=== PATIENT | male | born 1980 | race Caucasian/White ===

== ENCOUNTER 2024-02-09 19:55 | Emergency (ER) | payer MEDICAID ==
[~2024-02-09] VITALS: Ht 172.7 cm; Wt 97.5 kg
[2024-02-09 21:07] LABS: BASO # 0.1 10*3/uL (0.0-0.1); BASO % 0.5 % (0.0-1.0); EOS # 0.2 10*3/uL (0.0-0.4); EOS % 1.4 % (1.0-4.0); HEMATOCRIT 47.5 % (42.0-52.0); LYMPH # 3.2 10*3/uL (1.3-4.4); LYMPH % 25.7 % (27.0-41.0); MEAN CELL VOLUME 85.9 fl (80.0-94.0); MEAN CORPUSCULAR HGB 28.9 pg (27.0-31.0); MEAN CORPUSCULAR HGB CONC 33.7 g/dl (33.0-37.0); MEAN PLATELET VOLUME 9.9 fl (9.6-12.3); MONO % 7.9 % (3.0-9.0); NEUT # 8.1 10*3/uL (2.3-7.9); NEUT % 64.1 % (47.0-73.0); PLATELET COUNT AUTOMATED 251 10*3/uL (130-400); RED BLOOD COUNT 5.53 10*6/uL (4.50-5.90); RED CELL DISTRI WIDTH 13.5 % (0-14.5); WHITE BLOOD COUNT 12.6 10*3/uL (4.8-10.8)
[2024-02-09 21:27] LABS: BUN 9 mg/dl (9-23); CHLORIDE 103 mmol/L (98-107); POTASSIUM 3.8 mmol/L (3.4-5.1)
[2024-02-09] MEDS ORDERED: VIBRAMYCIN100 MG PO (22:18)
[2024-02-09] MEDS ORDERED: CEPHALEXIN500 M1 PO (22:18)
[2024-02-09] MEDS ORDERED: CEPHALEXIN 500 MG CAP PO ONE (22:20)
[2024-02-09] MEDS ORDERED: Doxycycline Hyclate 100 MG CAP PO ONE (22:20)
== END 2024-02-09 22:28 | disposition home or self-care (01) ==
LOC: ED 19:55
PROVIDERS: Physician Assistant Medical
DX: L03.116 Cellulitis of left lower limb (principal); Z88.8 Allergy status to other drugs, medicaments and biological substances

== ENCOUNTER 2024-05-24 19:36 | Emergency (ER) | payer SELFPAY ==
[~2024-05-24] VITALS: Ht 172.7 cm; Wt 102.1 kg
[~2024-05-24 19:36] MED LIST: CEPHALEXIN500 M1 PO; VIBRAMYCIN100 MG PO
[2024-05-24] MEDS ORDERED: PENICILLIN-VK500 M1 PO (20:10)
[2024-05-24] MEDS ORDERED: PENICILLIN V POTASSIUM 500 MG TAB PO ONE (20:15)
[2024-05-24] MEDS ORDERED: IBUPROFEN 800 MG TAB PO ONE (20:15)
== END 2024-05-24 20:38 | disposition home or self-care (01) ==
LOC: ED 19:36
DX: K02.9 Dental caries, unspecified (principal); R68.84 Jaw pain; R22.0 Localized swelling, mass and lump, head; Z88.8 Allergy status to other drugs, medicaments and biological substances

== ENCOUNTER 2024-10-02 20:40 | Inpatient (IN) | payer OTHER ==
[~2024-10-02] VITALS: Ht 172.7 cm; Wt 99.8 kg
[~2024-10-02 20:40] MED LIST changes: +PENICILLIN-VK500 M1 PO
[2024-10-02 21:00] VITALS: BP 146/99
[2024-10-02] MEDS ORDERED: SODIUM CHLORIDE 0.9% 1,000 ML IV SCH (22:05)
[2024-10-02] MEDS ORDERED: Piperacillin Sodium/Tazobact 50 ML IV ONE (22:05)
[2024-10-02] MEDS ORDERED: Vancomycin Hydrochloride 250 ML IV ONE (22:05)
[2024-10-02] MEDS ORDERED: DEXTROSE 10 % IN WATER 250 ML IV PRN (23:50)
[2024-10-02] MEDS ORDERED: ACETAMINOPHEN 325 MG TAB PO PRN (23:55)
[2024-10-02] MEDS ORDERED: ACETAMINOPHEN 650 MG SUPP R PRN (23:55)
[2024-10-02] MEDS ORDERED: Magnesium Hydroxide 30 ML UDC PO PRN (23:55)
[2024-10-02] MEDS ORDERED: Acetaminophen/Hydrocodone 5 MG/325 MG TABLET PO PRN (23:55)
[2024-10-02] MEDS ORDERED: Ondansetron Hydrochloride 4 MG/2 ML VIAL IV PRN (23:55)
[2024-10-02] MEDS ORDERED: BISACODYL 5 MG TAB PO PRN (23:55)
[2024-10-02] MEDS ORDERED: BISACODYL 10 MG SUPP R PRN (23:55)
[2024-10-03] MEDS ORDERED: Vancomycin Hydrochloride 1,000 MG in SODIUM CHLORIDE 0.9% 250 ML IV SCH (00:05)
[2024-10-03 03:08] LABS: BILIRUBIN Negative (Negative); BLOOD Negative (Negative); CLARITY Clear (Clear); COLOR Yellow (Yellow); GLUCOSE Negative (Negative); KETONE Negative (Negative); LEUKO ESTERASE Negative (Negative); NITRITE Negative (Negative); UROBILINOGEN 0.2 E.U./dl (0.0-1.0)
[2024-10-03 03:22] LABS: RBC 0-2 rbc/hpf (0-2); WBC 0-2 wbc/hpf (0-5)
[2024-10-03] MEDS ORDERED: Piperacillin Sodium/Tazobact 50 ML IV ONE (06:00)
[2024-10-03 06:14] LABS: BASO # 0.1 10*3/uL (0.0-0.1); BASO % 0.5 % (0.0-1.0); EOS # 0.2 10*3/uL (0.0-0.4); EOS % 1.4 % (1.0-4.0); HEMATOCRIT 48.8 % (42.0-52.0); MEAN CELL VOLUME 86.7 fl (80.0-94.0); MEAN CORPUSCULAR HGB 29.5 pg (27.0-31.0); MEAN PLATELET VOLUME 10.3 fl (9.6-12.3); MONO # 1.1 10*3/uL (0.1-1.0); MONO % 8.8 % (3.0-9.0); NEUT # 8.1 10*3/uL (2.3-7.9); NEUT % 65.1 % (47.0-73.0); PLATELET COUNT AUTOMATED 224 10*3/uL (130-400); RED BLOOD COUNT 5.63 10*6/uL (4.50-5.90); RED CELL DISTRI WIDTH 13.2 % (0-14.5); WHITE BLOOD COUNT 12.3 10*3/uL (4.8-10.8)
[2024-10-03 06:21] LABS: ACT PARTIAL THROMBO TIME 28.3 SECONDS (20.0-32.1)
[2024-10-03] MEDS ORDERED: INSULIN LISPRO 1 UNIT/0.01 ML SQ SCH (07:30)
[2024-10-03 07:52] LABS: ALKALINE PHOSPHATASE 77 U/L (46-116); BUN 11 mg/dl (9-23); CHLORIDE 106 mmol/L (98-107); CHOLESTEROL 184 mg/dL (<200); FREE T4 1.08 ng/dl (0.89-1.76); LDL CHOLESTEROL 114 mg/dL (9-159); POTASSIUM 4.3 mmol/L (3.4-5.1); SGPT/ALT 24 U/L (5-49); TOTAL PROTEIN 6.8 gm/dL (6.0-8.0); TRIGLYCERIDES 218 mg/dl (<150)
[2024-10-03 07:55] LABS: VITAMIN D, 25-HYDROXY 10.8 ng/mL (30-100)
[2024-10-03] MEDS ORDERED: VANCOMYCIN/WATER FOR INJ (PEG) 300 ML IV SCH (08:00)
[2024-10-03] MEDS ORDERED: Enoxaparin Sodium 40 MG/0.4 ML SYR SC SCH (10:00)
[2024-10-03] MEDS ORDERED: Piperacillin Sodium/Tazobact 50 ML IV SCH (12:00)
== END 2024-10-03 06:20 | disposition left against medical advice (07) | DRG 720 ==
LOC: ED 20:40 → EDHOLD 23:08
PROVIDERS: Student in an Organized Health Care Education/Training Program; ADMIT Internal Medicine; ATTEND Internal Medicine
DX: A41.9 Sepsis, unspecified organism (principal); L03.116 Cellulitis of left lower limb; Z53.29 Procedure and treatment not carried out because of patient's decision for other reasons; D75.1 Secondary polycythemia; E11.65 Type 2 diabetes mellitus with hyperglycemia; F17.210 Nicotine dependence, cigarettes, uncomplicated; R65.20 Severe sepsis without septic shock; Z88.8 Allergy status to other drugs, medicaments and biological substances; Z79.899 Other long term (current) drug therapy; Z90.49 Acquired absence of other specified parts of digestive tract; Z83.3 Family history of diabetes mellitus; Z71.6 Tobacco abuse counseling

== ENCOUNTER → 2024-10-16 | Outpatient (CLI) | payer OTHER | END | disposition home or self-care (01) | LOC: CT 10:47 | PROVIDERS: ATTEND Podiatrist | DX: S82.392D Other fracture of lower end of left tibia, subsequent encounter for closed fracture with routine healing (principal); S82.899K Other fracture of unspecified lower leg, subsequent encounter for closed fracture with nonunion; M79.89 Other specified soft tissue disorders; L03.116 Cellulitis of left lower limb; M77.52 Other enthesopathy of left foot and ankle; L02.612 Cutaneous abscess of left foot; X58.XXXD Exposure to other specified factors, subsequent encounter; X58.XXXA Exposure to other specified factors, initial encounter; Y93.89 Activity, other specified; Y92.89 Other specified places as the place of occurrence of the external cause; Y99.8 Other external cause status; Z98.890 Other specified postprocedural states ==

== ENCOUNTER 2024-10-29 23:08 | Emergency (ER) | payer OTHER ==
[~2024-10-29] VITALS: Ht 172.7 cm; Wt 104.3 kg
[2024-10-29] MEDS ORDERED: LOSARTAN POTASS25 M1 PO (23:16)
[2024-10-29] MEDS ORDERED: METFORMIN HYDR500 MG PO (23:16)
[2024-10-29] MEDS ORDERED: ROSUVASTATIN CA20 MG PO (23:17)
[2024-10-29 23:36] LABS: BASO # 0.1 10*3/uL (0.0-0.1); BASO % 0.6 % (0.0-1.0); EOS # 0.2 10*3/uL (0.0-0.4); EOS % 1.5 % (1.0-4.0); HEMATOCRIT 49.4 % (42.0-52.0); MEAN CORPUSCULAR HGB 29.3 pg (27.0-31.0); MEAN CORPUSCULAR HGB CONC 34.4 g/dl (33.0-37.0); MEAN PLATELET VOLUME 10.2 fl (9.6-12.3); MONO # 1.3 10*3/uL (0.1-1.0); NEUT # 9.6 10*3/uL (2.3-7.9); NEUT % 64.3 % (47.0-73.0); PLATELET COUNT AUTOMATED 233 10*3/uL (130-400); RED BLOOD COUNT 5.81 10*6/uL (4.50-5.90); RED CELL DISTRI WIDTH 12.9 % (0-14.5); WHITE BLOOD COUNT 14.9 10*3/uL (4.8-10.8)
[2024-10-30 00:07] LABS: BUN 14 mg/dl (9-23); CHLORIDE 103 mmol/L (98-107); POTASSIUM 3.9 mmol/L (3.4-5.1)
[2024-10-30] MEDS ORDERED: Pantoprazole Sodium 20 MG TAB PO ONE ×2 (00:55)
[2024-10-30] MEDS ORDERED: OMEPRAZOLE40 MG PO (01:01)
[2024-10-31] MEDS ORDERED: VIBRA-TAB100 MG PO (11:58)
[2024-10-31] MEDS ORDERED: TRAMADOL HCL50 MG PO (11:58)
[2024-10-31] MEDS ORDERED: ACETAMINOPHEN500 M5 PO (11:58)
[2024-10-31] MEDS ORDERED: XARELTO10 MG PO (11:58)
[2024-10-31] MEDS ORDERED: HYDROCODONE-AC1 EAC1 PO (13:08)
== END 2024-10-30 01:03 | disposition home or self-care (01) ==
LOC: ED 23:08
PROVIDERS: Internal Medicine
DX: K20.80 Other esophagitis without bleeding (principal); D72.829 Elevated white blood cell count, unspecified; F17.200 Nicotine dependence, unspecified, uncomplicated; Z88.8 Allergy status to other drugs, medicaments and biological substances; Z79.899 Other long term (current) drug therapy; Z79.84 Long term (current) use of oral hypoglycemic drugs

== ENCOUNTER → 2024-10-31 | Day surgery (SDC) | payer OTHER ==
[~2024-10-31] VITALS: Ht 172.7 cm; Wt 77.1 kg
[~2024-10-31] MED LIST changes: +ACETAMINOPHEN500 M5 PO; +BUPivacaine 0.5% 10 ML VIAL ONE; +BUPivacaine 0.5% 30 ML IV ONE; +HYDROCODONE-AC1 EAC1 PO; +HYDROmorphONE Hydrochloride 0.5 MG/0.5 ML SYRINGE IV SCH; +HYDROmorphONE Hydrochloride 0.5 MG/0.5 ML SYRINGE ONE; +Ketamine Hydrochloride 50 MG/5 ML SYRINGE IV ONE; +Ketorolac Tromethamine 30 MG/ML VIAL IV ONE; +LOSARTAN POTASS25 M1 PO; +Lactated Ringer's Solution 1,000 ML IV ONE; +Lactated Ringer's Solution 1,000 ML IV SCH; +METFORMIN HYDR500 MG PO; +Midazolam Hydrochloride 2 MG/2 ML VIAL IV ONE; +OMEPRAZOLE40 MG PO; +PROPOFOL 200 MG/20 ML VIAL IV ONE; +ROSUVASTATIN CA20 MG PO; +SODIUM CHLORIDE 0.9% 1,000 ML IV ONE; +TRAMADOL HCL50 MG PO; +VIBRA-TAB100 MG PO; +Vancomycin Hydrochloride 1,000 MG VIAL ONE; +XARELTO10 MG PO; +ceFAZolin sodium 2GM/20ML IV ONE; +ceFAZolin sodium/sodium chlor 20 ML IV ONE; +dexmedeTOMIDine HCL 200 MCG/2 ML VIAL IV ONE; +fentaNYL CITRATE 100 MCG/2 ML VIAL IV ONE
[2024-10-31 08:25] VITALS: BP 146/99
[2024-11-01 13:07] LABS: ACID FAST SPEC PROCESSING Tissue Grinding (.)
[2024-11-01 13:07] LABS: ACID FAST SPEC PROCESSING Tissue Grinding (.)
[2024-11-01 13:07] LABS: ACID FAST SPEC PROCESSING Tissue Grinding (.)
[2024-11-01 13:07] LABS: ACID FAST SPEC PROCESSING Tissue Grinding (.)
[2024-11-01 13:07] LABS: ACID FAST SPEC PROCESSING Tissue Grinding (.)
[2024-11-01 13:07] LABS: ACID FAST SPEC PROCESSING Tissue Grinding (.)
[2024-11-01 13:07] LABS: ACID FAST SPEC PROCESSING Tissue Grinding (.)
== END | disposition home or self-care (01) ==
LOC: SDC 10-29 08:45
PROVIDERS: ATTEND Podiatrist
DX: T84.84XA Pain due to internal orthopedic prosthetic devices, implants and grafts, initial encounter (principal); M86.272 Subacute osteomyelitis, left ankle and foot; I10 Essential (primary) hypertension; E11.9 Type 2 diabetes mellitus without complications; E78.00 Pure hypercholesterolemia, unspecified; F17.210 Nicotine dependence, cigarettes, uncomplicated; F12.90 Cannabis use, unspecified, uncomplicated; Z90.49 Acquired absence of other specified parts of digestive tract; Z98.890 Other specified postprocedural states; Z79.899 Other long term (current) drug therapy; Z88.8 Allergy status to other drugs, medicaments and biological substances; Z83.3 Family history of diabetes mellitus; Y83.8 Other surgical procedures as the cause of abnormal reaction of the patient, or of later complication, without mention of misadventure at the time of the procedure; Y92.89 Other specified places as the place of occurrence of the external cause
CPT/HCPCS: 01480; 0707T; 20240 ×2; 20680 ×4